=== PATIENT | female | born 1960 | race Caucasian/White ===

== ENCOUNTER 2023-09-08 15:35 | Observation (INO) | payer OTHER ==
[2023-09-08 18:40] LABS: BASO % 0.3 % (0-2.0); EOS % 0.1 % (0-4.5); HEMATOCRIT 38.4 % (32.4-45.2); HEMOGLOBIN 12.7 GM/dL (10.7-15.3); LYMPH % 14.9 % (8-40); MCH 30.1 pg (25.7-33.7); MEAN CELL VOLUME 91.3 fl (80-96); MEAN PLT VOLUME 8.9 fl (7.5-11.1); MONO % 22.2 % (3.8-10.2); NEUT % 62.5 % (42.8-82.8); PLATELET COUNT 242 10^3/uL (134-434); RBC 4.21 M/mm3 (3.60-5.2); RDW 13.9 % (11.6-15.6); WHITE BLOOD COUNT 6.7 K/mm3 (4.0-10.0)
[2023-09-08 18:47] LABS: INR 1.17 (0.83-1.09); PROTHROMBIN TIME (PATIENT) 13.6 SEC (9.7-13.0)
[2023-09-08 18:49] LABS: ACTIVATED PTT 32.1 SECONDS (25.2-36.5)
[2023-09-08 18:59] LABS: POTASSIUM 4.1 mmol/L (3.5-5.1)
[2023-09-08 19:01] LABS: BLOOD UREA NITROGEN 16.9 mg/dL (7-18); CALCIUM 9.4 mg/dL (8.5-10.1)
[2023-09-08 19:02] LABS: ALBUMIN 3.6 g/dl (3.4-5.0); MAGNESIUM 2.5 mg/dL (1.8-2.4)
[2023-09-08 19:05] LABS: CREATININE 1.1 mg/dL (0.55-1.3)
[2023-09-08 19:06] LABS: BILIRUBIN,TOTAL 0.5 mg/dL (0.2-1); TOT PROT 7.3 g/dl (6.4-8.2)
[2023-09-08 19:09] LABS: N-TERMINAL BNP 28.2 pg/ml (5-125)
[2023-09-09] MEDS ORDERED: SODIUM CHLORIDE 1,000 ML IV STA (00:43)
[2023-09-09] MEDS ORDERED: OSELTAMIVIR PHOSPHATE 45 MG CAPSULE PO ONE (00:48)
[2023-09-09 01:23] VITALS: BMI 30.6
[2023-09-09] MEDS ORDERED: SODIUM CHLORIDE 1,000 ML IV SCH (02:15)
[2023-09-09] MEDS: HYDROXYCHLOROQUINE SO4 200 MG TABLET (FP) PO SCH ×2 (02:18→11:46)
[2023-09-09] MEDS: OSELTAMIVIR PHOSPHATE 75 MG CAPSULE PO SCH ×2 (02:19→12:27)
[2023-09-09 06:14] VITALS: RESP 18
[2023-09-09] MEDS ORDERED: LEVOTHYROXINE NA 88 MCG TABLET (FP) PO SCH (07:00)
[2023-09-09 08:56] LABS: HEMATOCRIT 35.6 % (32.4-45.2); HEMOGLOBIN 11.8 GM/dL (10.7-15.3); MCH 30.3 pg (25.7-33.7); MCHC 33.1 g/dl (32.0-36.0); MEAN CELL VOLUME 91.5 fl (80-96); MEAN PLT VOLUME 8.9 fl (7.5-11.1); PLATELET COUNT 224 10^3/uL (134-434); RDW 13.4 % (11.6-15.6); WHITE BLOOD COUNT 3.8 K/mm3 (4.0-10.0)
[2023-09-09 09:35] LABS: ALBUMIN 3.2 g/dl (3.4-5.0)
[2023-09-09 09:36] LABS: BLOOD UREA NITROGEN 15.4 mg/dL (7-18)
[2023-09-09 09:37] LABS: CALCIUM 8.4 mg/dL (8.5-10.1)
[2023-09-09 09:38] LABS: BILIRUBIN,TOTAL 0.4 mg/dL (0.2-1); CREATININE 0.9 mg/dL (0.55-1.3); MAGNESIUM 2.1 mg/dL (1.8-2.4); PHOSPHOROUS 3.1 mg/dL (2.5-4.9)
[2023-09-09 09:39] LABS: TOT PROT 6.6 g/dl (6.4-8.2)
[2023-09-09] MEDS ORDERED: MECOBALAMIN 1000 MCG PO SCH (10:00)
[2023-09-09] MEDS ORDERED: ENOXAPARIN NA (PORCINE) 40 MG/0.4 ML DISP.SYRIN SQ SCH (10:00)
[2023-09-09] MEDS ORDERED: FLUTICASONE PROP 0.05% 16 GM NASAL SPRAY NS SCH (10:00)
[2023-09-09] MEDS ORDERED: PANTOPRAZOLE 40 MG TABLET PO SCH (10:00)
[2023-09-09 11:14] VITALS: BP 113/54; PULSE 85; TEMP 99.2
[2023-09-09] MEDS ORDERED: OSELTAMIVIR PHOSPHATE 75 MG CAPSULE PO ONE (22:00)
[2023-09-12 05:08] LABS: METHYLMALONIC ACID- 137 nmol/L (0-378)
== END 2023-09-09 18:00 | disposition home or self-care (01) ==
LOC: JER 15:35 → JERBED 19:32 → J4S 09-09 00:46
PROVIDERS: ADMIT Internal Medicine; ATTEND Internal Medicine
PROC: 3E0337Z Introduction of Electrolytic and Water Balance Substance into Peripheral Vein, Percutaneous Approach (ICD-10-PCS; principal; 2023-09-08)
DX: R55 Syncope and collapse (principal); S09.90XA Unspecified injury of head, initial encounter; K21.9 Gastro-esophageal reflux disease without esophagitis; X58.XXXA Exposure to other specified factors, initial encounter; M72.2 Plantar fascial fibromatosis; Y93.E8 Activity, other personal hygiene; Y92.002 Bathroom of unspecified non-institutional (private) residence as the place of occurrence of the external cause; E03.9 Hypothyroidism, unspecified; E53.8 Deficiency of other specified B group vitamins
CPT/HCPCS: 0241U-QW; 36415; 70450-TC; 71045-TC-FY; 80053; 82607; 83735; 83880; 83921; 84100; 84484; 85025; 85027; 85610; 85730; 93005; 93010; 96360; 99285-25; G0378